=== PATIENT | male | born 1940 | race African-American/Black ===

== ENCOUNTER 2018-05-25 20:37 | Emergency (ER) | payer MEDICARE, BC ==
[2018-05-25] MEDS ORDERED: Adacel (T-DAP) 0.5 ML SYRINGE ONE (21:31)
--- NOTE | 2018-05-25 21:41 | RAD ---
FXR Hand Lt 3 View STANDARD: 05/25/2018 9:19 PM CLINICAL INDICATION: Injury, with nail gun COMPARISON: None. FINDINGS: Fracture:Scattered chronic appearing osseous deformities are present without a discrete, acute fractu re Arthropathy:Moderate arthropathy. Incidental findings:No radiopaque foreign body. There is vascular calcification. IMPRESSION: 1. No acute osseous abnormality. 2. No radiopaque foreign body.
== END 2018-05-25 21:57 | disposition home or self-care (01) ==
LOC: ERS 20:37
DX: S61.432A Puncture wound without foreign body of left hand, initial encounter (principal); I10 Essential (primary) hypertension; W29.4XXA Contact with nail gun, initial encounter
CPT/HCPCS: 90471; 90715

== ENCOUNTER 2018-11-14 13:15 | Outpatient (CLI) | payer MEDICARE, BC ==
--- NOTE | 2018-11-14 14:33 | ULT ---
SOFT TISSUE ULTRASOUND OF THE ANTERIOR LEFT WRIST: INDICATION: History of palpable abnormality, concern for possible lipoma or neuroma. TECHNIQUE: Grayscale and color Doppler images were obtained of the palpable region of interest along the volar a spect of the left wrist. FINDINGS: Within the palpable region of interest, there is a 2.1 x 0.4 x 1.2 cm mixed echogenicity, but predomi nantly hypoechoic collection, seen superficial to the flexor tendons of the volar wrist near the level of the radiocarpal joint. There is no internal vascular signal associated with this lesion. The lesion appears slightly more hypoechoic than expected for a lipoma. This does not definitely appear to arise from the median nerve. IMPRESSION: Hypoechoic soft tissue lesion seen along the volar aspect of the left wrist, superficial and adjacent to the flexor tendons near the region of the carpal tunnel. This may reflect an area of bursitis within the carpal tunnel. Contrast enhanced CT evaluation of the left wrist may be helpful for improv ed characterization. Transcribed Date/Time: 11/14/2018 3:30 PM
== END 2018-11-14 13:16 | disposition home or self-care (01) ==
LOC: ULT 13:15
PROVIDERS: ATTEND Orthopaedic Surgery Hand Surgery
DX: D17.22 Benign lipomatous neoplasm of skin and subcutaneous tissue of left arm (principal); D36.10 Benign neoplasm of peripheral nerves and autonomic nervous system, unspecified; M79.9 Soft tissue disorder, unspecified
CPT/HCPCS: 76999

== ENCOUNTER 2018-11-26 12:10 | Outpatient (CLI) | payer MEDICARE, BC ==
[2018-11-26 15:45] LABS: #Eosinphils 0.4 thou/uL (0.0-0.7); #Lymphocytes 2.3 thou/uL (1.20-3.40); #Monocytes 0.5 thou/uL (0.11-0.59); %Basophils 0.2 % (0.0-1.0); %Eosinophils 6.8 % (0.0-10.0); %Lymphocytes 44.7 % (21.0-51.0); %Monocytes 10.1 % (0.0-10.0); %Neutrophils 38.2 % (42.0-75.0); Hemoglobin 12.2 g/dL (14.0-18.0); Mean Corpuscular HGB CONC 31.4 g/dL (32.0-36.0); Mean Corpuscular Hemoglobin 26.7 pg (27.0-31.0); Mean Corpuscular Volume 85.2 fL (78.0-98.0); Mean Platelet Volume 7.4 fL (7.4-10.4); Platelet Count 257 thou/uL (130-400); RBC Distribution Width 15.3 % (11.5-14.5); Red Blood Cell (RBC) Count 4.58 mill/uL (4.70-6.10); White Blood Cell (WBC) Count 5.2 thou/uL (4.8-10.8)
[2018-11-26 15:50] LABS: Bacteria/HPF None Seen HPF (None Seen); Bilirubin Negative (Negative); Blood, Urine Negative (Negative); Clarity Clear (Clear); Glucose, Urine (Dipstick) Normal (Negative); Leukocyte Negative Leu/uL (Negative); Nitrite Negative (Negative); Protein, Urine (Dipstick) Negative (Neg-Trace); RBC/HPF 0-3 HPF (0-3); Squamous Epithelial None Seen HPF (0-3); Urobilinogen Normal mg/dL (Less than 2); WBC/HPF 0-3 HPF (0-3)
[2018-11-26 16:05] LABS: Anion Gap 10 mmol/L (10-20); BUN (Urea Nitrogen) 11 mg/dL (8.4-25.7); Calc. Creatinine Clearance 0 mL/min (70-130); Calcium 8.7 mg/dL (7.8-10.44); Carbon Dioxide 27 mmol/L (23-31); Chloride 103 mmol/L (98-107); Estimated GFR-MDRD Greater than 90; Glucose 96 mg/dL (83-110); Potassium 3.6 mmol/L (3.5-5.1); Sodium 136 mmol/L (136-145)
== END 2018-11-26 12:11 | disposition home or self-care (01) ==
LOC: LABBT 12:10
PROVIDERS: ATTEND Orthopaedic Surgery Hand Surgery
DX: Z01.818 Encounter for other preprocedural examination (principal); G56.02 Carpal tunnel syndrome, left upper limb; D17.9 Benign lipomatous neoplasm, unspecified
CPT/HCPCS: 80048; 81001; 85025; 93005; 93010

== ENCOUNTER 2018-11-27 10:13 | Day surgery (SDC) | payer MEDICARE, BC ==
[2018-11-26 15:28] VITALS: BMI 25.7
[2018-11-27] MEDS ORDERED: Fentanyl 100 MCG/2 ML VIAL ONE ×2 (12:02→12:51)
[2018-11-27] MEDS ORDERED: Bupivacaine PF 0.5% 30 ML VIAL ONE (12:05)
[2018-11-27] MEDS ORDERED: Betamet Acet/Betamet Na Ph 30 MG/5 ML VIAL ONE (12:05)
[2018-11-27] MEDS ORDERED: Sodium Chloride 0.9% 10 ML ONE (12:05)
[2018-11-27] MEDS ORDERED: Bacitracin Zinc Ointment 30 gm TUBE ONE (12:05)
[2018-11-27] MEDS ORDERED: PROPOFOL 200 MG/20 ML VIAL ONE (12:17)
[2018-11-27] MEDS ORDERED: Ketorolac Tromethamine 30 MG/ML VIAL ONE (15:30)
--- NOTE | 2018-11-28 10:38 | OP ---
DATE OF PROCEDURE: 11/27/2018 PREOPERATIVE DIAGNOSIS: 1. Carpal tunnel syndrome. 2. 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 PROCEDURE PERFORMED: 1. Resection of neuroma under magnification to include microscope. 2. Repair of median nerve fascicle, fascicular technique x2 with one coming direct and one needing a graft. 3. Carpal tunnel release/median nerve neuroplasty. 4. Neural tube application, 1.5 cm x 3 mm cut to appropriate size. SPECIMENS TO LAB: A 4.5 x 2.0 cm neuroma continuity which came back from a verbal call from frozen section pathology as consistent with neuroma, nonmalignant. TOURNIQUET TIME: 90 minutes. ESTIMATED BLOOD LOSS: 10 mL. INDICATIONS FOR PROCEDURE: The patient has had numbness and tingling for over 3 years and reported a 2-year history of a mass that had grown to the present size, remains over the last 1 year. He had positive EMGs and exam for carpal tunnel and this mass was felt to be either a giant cyst, synovial cell or a synovioma or neuroma. DESCRIPTION OF PROCEDURE: After successful anesthesia, incision outlined and beginning in line at the ring finger as far distal as Painting's cardinal line, coursing across the wrist joint at an angle, then reached 2 cm proximal to the volar wrist flexion crease mass. We carried the incision to the skin and subcutaneous tissue with a sharp knife, dissected the tissue planes, carried to the transverse carpal ligament. It was here we identified the median nerve proximal to transverse carpal ligament, assured it was released appropriately. The patient then had the lesion , the most ulnar fascicle blended completely with the mass and could not be visualized either with micro magnification, so when the mass was incised we then noticed that the ulnar fascicle of this nerve root had a gap of almost 1 cm. Similarly, there was a laceration with only one 2 mm gap and the next one was radial fascicle. The mass was sent to the lab, microscope was then used to do an interfascicular repair, using a 9-0 nylon and then a sheath was applied over the second most ulnar sheath fasicle repair with an 8-0 nurolon. Finally, the fascicle that was almost 8 to 9 mm too short to reach, was further and then we placed it inside a 1.5 mm cut to above 1.2 cm and we secured both ends in the neural tube for grafting and we will follow the patient's foot pain if necessary. Job ID: [id number]
== END 2018-11-27 16:55 | disposition home or self-care (01) ==
LOC: SDC 10:13
PROVIDERS: ATTEND Orthopaedic Surgery Hand Surgery
PROC: 01N50ZZ Release Median Nerve, Open Approach (ICD-10-PCS; principal; 2018-11-27)
PROC: 01B50ZZ Excision of Median Nerve, Open Approach (ICD-10-PCS; 2018-11-27)
PROC: 01U50JZ Supplement Median Nerve with Synthetic Substitute, Open Approach (ICD-10-PCS; 2018-11-27)
DX: D36.12 Benign neoplasm of peripheral nerves and autonomic nervous system, upper limb, including shoulder (principal); G56.02 Carpal tunnel syndrome, left upper limb; M47.816 Spondylosis without myelopathy or radiculopathy, lumbar region; M65.332 Trigger finger, left middle finger; M19.90 Unspecified osteoarthritis, unspecified site; I10 Essential (primary) hypertension; I25.10 Atherosclerotic heart disease of native coronary artery without angina pectoris; E78.00 Pure hypercholesterolemia, unspecified; Z79.01 Long term (current) use of anticoagulants; Z79.82 Long term (current) use of aspirin; Z79.899 Other long term (current) drug therapy; Z95.1 Presence of aortocoronary bypass graft; Z95.0 Presence of cardiac pacemaker; Z98.890 Other specified postprocedural states
CPT/HCPCS: 88304; 88331; C9352; J0690; J0702; J1885; J3010; J3490; S0020

== ENCOUNTER 2019-07-12 06:39 | Day surgery (SDC) | payer MEDICARE, BC ==
[2019-07-12] MEDS ORDERED: Midazolam HCl 2 mg/2 ml Vial ONE (07:21)
[2019-07-12] MEDS ORDERED: Fentanyl 100 MCG/2 ML VIAL ONE (07:21)
[2019-07-12] MEDS ORDERED: Iopamidol 370 76% 100 ML VIAL ONE (09:27)
[2019-07-12] MEDS ORDERED: Iopamidol 370 76% 50 ML VIAL FS ONE (09:27)
== END 2019-07-12 13:50 | disposition home or self-care (01) ==
LOC: CCL 06:39
PROVIDERS: ATTEND Internal Medicine Cardiovascular Disease
PROC: 4A023N7 Measurement of Cardiac Sampling and Pressure, Left Heart, Percutaneous Approach (ICD-10-PCS; principal; 2019-07-12)
PROC: B2111ZZ Fluoroscopy of Multiple Coronary Arteries using Low Osmolar Contrast (ICD-10-PCS; 2019-07-12)
PROC: B2131ZZ Fluoroscopy of Multiple Coronary Artery Bypass Grafts using Low Osmolar Contrast (ICD-10-PCS; 2019-07-12)
PROC: B2181ZZ Fluoroscopy of Left Internal Mammary Bypass Graft using Low Osmolar Contrast (ICD-10-PCS; 2019-07-12)
DX: I25.10 Atherosclerotic heart disease of native coronary artery without angina pectoris (principal); I25.82 Chronic total occlusion of coronary artery; I48.0 Paroxysmal atrial fibrillation; I25.5 Ischemic cardiomyopathy; I11.0 Hypertensive heart disease with heart failure; I50.9 Heart failure, unspecified; Z87.891 Personal history of nicotine dependence; Z79.01 Long term (current) use of anticoagulants; Z79.82 Long term (current) use of aspirin; Z79.899 Other long term (current) drug therapy; Z95.1 Presence of aortocoronary bypass graft
CPT/HCPCS: 76942; 93459; 93567; 99152; C1769; J1644; J2250; J3010; Q9967

== ENCOUNTER 2020-01-29 16:54 | Observation (INO) | payer MEDICARE, BC ==
--- NOTE | 2020-01-29 19:44 | RAD ---
CHEST ONE VIEW: 01/29/20 HISTORY: Chest pain. COMPARISON: None. FINDINGS: Lungs are clear although mildly hyperinflated. Dual lead AICD/pacer electrode tips project over the r ight atrium and right ventricle. No acute osseous abnormality. No air space consolidation, pneumothor ax or effusion. IMPRESSION: No acute intrathoracic abnormality. POS: [facility]
[2020-01-29 20:58] LABS: ALT (SGPT) 14 U/L (8-55); AST (SGOT) 19 U/L (5-34); Albumin 3.6 g/dL (3.4-4.8); Alkaline Phosphatase 111 U/L (40-110); Anion Gap 11 mmol/L (10-20); BUN (Urea Nitrogen) 16 mg/dL (8.4-25.7); Bilirubin, Total 0.4 mg/dL (0.2-1.2); Calc. Creatinine Clearance 0 mL/min (70-130); Calcium 8.6 mg/dL (7.8-10.44); Carbon Dioxide 28 mmol/L (23-31); Chloride 105 mmol/L (98-107); Globulin 3.7 g/dL (2.4-3.5); Glucose 102 mg/dL (83-110); Potassium 3.7 mmol/L (3.5-5.1); Protein, Total 7.3 g/dL (5.8-8.1); Sodium 140 mmol/L (136-145)
[2020-01-29 21:03] LABS: Troponin I 0.055 ng/mL (< 0.028)
[2020-01-29] MEDS ORDERED: Acetaminophen 325 MG TAB PO PRN (22:38)
[2020-01-29 23:01] LABS: #Eosinphils 0.2 thou/uL (0.0-0.7); #Lymphocytes 1.3 thou/uL (1.20-3.40); #Monocytes 0.6 thou/uL (0.11-0.59); #Neutrophils 3.8 thou/uL (1.40-6.50); %Basophils 0.5 % (0.0-1.0); %Lymphocytes 22.6 % (21.0-51.0); %Monocytes 9.2 % (0.0-10.0); %Neutrophils 63.6 % (42.0-75.0); Mean Corpuscular HGB CONC 32.3 g/dL (32.0-36.0); Mean Corpuscular Hemoglobin 28.7 pg (27.0-31.0); Mean Platelet Volume 6.7 fL (7.4-10.4); Platelet Count 257 thou/uL (130-400); RBC Distribution Width 13.1 % (11.5-14.5); Red Blood Cell (RBC) Count 3.84 mill/uL (4.70-6.10); White Blood Cell (WBC) Count 5.9 thou/uL (4.8-10.8)
--- NOTE | 2020-01-29 23:01 | PDOC.BPN ---
- Brief Progress Note [id number] HP dictated
[2020-01-30 00:54] LABS: Troponin I 0.088 ng/mL (< 0.028)
[2020-01-30 01:08] VITALS: BMI 23.6
[2020-01-30 02:07] LABS: Troponin I 0.082 ng/mL (< 0.028)
--- NOTE | 2020-01-30 02:25 | HP ---
CHIEF COMPLAINT: Defibrillator fired x2. HISTORY OF PRESENT ILLNESS: Mr. Morrison is a 79-year-old male with a past medical history of atrial fibrillation, hypertension, cardiac defibrillator, among others, presented to the emergency room after he was working in his yard on his tractor when his defibrillator fired two times. He had no chest pain, shortness of breath, weakness, or loss of consciousness. He states that his defibrillator has fired in the past, more frequent in the last week. He denies any recent illness, fever, or chills. Workup in the emergency room, the interrogation of the device showed runs of ventricular tachycardia, atrial tachycardia, and atrial fibrillation. The ED physician discussed the case with the cardiac numerologist, who advised to admit the patient and he will consult in a.m. Initial lab work; the patient had troponin 0.05, creatinine 1.3. Otherwise, electrolytes are unremarkable. Chest x-ray, no acute finding. The patient is being admitted to hospital for further management. PAST MEDICAL HISTORY: 1. Atrial fibrillation. 2. Hypertension. PAST SURGICAL HISTORY: 1. Bilateral shoulder surgery. 2. Triple bypass. SOCIAL HISTORY: The patient drinks every day less than five drinks a day. Denies drug use. No smoking history. HOME MEDICATIONS: See home medication reconciliation form for updated medications. ALLERGIES: NO KNOWN ALLERGIES. REVIEW OF SYSTEMS: Review of 14 systems negative except what is mentioned in the history of present illness. PHYSICAL EXAMINATION: GENERAL: The patient is awake, alert, does not appear to be in acute distress. VITAL SIGNS: Blood pressure 124/64, pulse is 86, respiratory rate is 20, temperature 98.9, oxygen saturations 97% on room air. HEENT: Normocephalic, atraumatic. NECK: Supple. No JVD. CHEST: Fair bilateral air entry. HEART: S1, S2. Regular. ABDOMEN: Soft, nontender. Bowel sounds present. NEUROLOGIC: Awake, alert, and oriented x3. PSYCH: Normal mood. EXTREMITIES: No clubbing, no cyanosis. GENITOURINARY: No suprapubic tenderness. No flank tenderness. LABORATORY DATA: As mentioned above in the history of present illness. Chest x-ray, no acute finding. ASSESSMENT: 1. AICD multiple firing. 2. Indeterminate troponin. 3. History of atrial fibrillation. 4. Cardiac arrhythmias. 5. Coronary artery disease. 6. Hypertension. PLAN: 1. Admit. 2. Tele monitoring. 3. Serial troponins. 4. Cardiac numerologist consult for evaluation and further recommendations. 5. Reconcile home medications. 6. DVT prophylaxis as appropriate. 7. Expected length of stay, at least 1 midnight if patient is stable and cleared by Cardiology. Job ID: [id number]
[2020-01-30 06:36] LABS: SARS-CoV-2 MS2 Positive; SARS-CoV-2 N Gene Negative; SARS-CoV-2 S Gene Negative; SARS-CoV-2 by NAA Not Detected (NotDetected); SARS-CoV-2 orf1ab Negative
[2020-01-30] MEDS ORDERED: Rivaroxaban 10 MG TAB PO SCH (09:00)
[2020-01-30] MEDS ORDERED: Aspirin 81 mg Enteric Coated Tablet PO SCH (09:00)
[2020-01-30] MEDS ORDERED: Furosemide 40 MG TAB PO SCH (09:00)
[2020-01-30] MEDS ORDERED: Carvedilol 6.25 MG TAB PO SCH (09:00)
[2020-01-30] MEDS ORDERED: Amiodarone 200 MG TAB PO SCH ×4 (09:34→15:00)
--- NOTE | 2020-01-30 10:52 | PDOC.DS.DS ---
Provider - Provider Date of Admission: 01/29/20 22:58 Admitting Provider: Jax Gomez MD Consultations: Cardiology Primary Care Physician: NO PCP PROVIDER Course - Hospital Course Hospital Course: HISTORY OF PRESENT ILLNESS AND BRIEF HOSPITAL COURSE: Patient is a pleasant 79 years ago gentleman who has significant past medical histories of congestive heart failure, ischemic cardiomyopathy with severe reduced EF, status post dual-chamber ICD placed in 2017. He presented to the ED with multiple shocks from his AICD device. It was unclear that liters or not olvin baird has been taking his Coreg as he is supposed to. At any rate, patient was subsequently admitted. His electrolytes have been corrected. EP was consulted, his AICD was interrogated, and appeared to be atrial fib with RVR. Dr. Knowles recommend start him on amiodarone with taper. Patient okay to discharge from his standpoint. Patient is given a prescription for Coreg as well as amiodarone. Patient to follow-up with him in 4 weeks. He is otherwise asymptomatic. PROCEDURE PERFORMED: NONE DISCHARGE CONDITION: STABLE DISPOSITION: HOME PHYSICAL EXAM: General Appearance: Alert, oriented, resting comfortably, no apparent distress, well developed/nourished. HEENT: Normocephalic/atraumatic, moist mucous membrane, normal ENT inspection, normal tones. PERRLA, no scleral icterus, normal conjunctiva Neck: Supple, normal inspection, no JVD Respiratory: Lungs are clear bilaterally, normal breath sounds, no accessory muscle use Cardiovascular: Regular rate, regular rhythm, no murmur, no rubs Abdomen: Soft, nontender, nondistended, normal bowel sounds, no organomegaly, no guarding no rebound Back: Normal inspection, no CVA tenderness Extremities: No clubbing, no cyanosis, no edema Psych/Mental Status: Normal affect, speech, non-pressured, AAO x 3 Neurologic: CN II-XII are intact. Skin: Warm/Dry, Normal Color, no rashes DISCHARGE TIME SPENT: >30 MINUTES Resuscitation Status: 01/29/20 22:38 Resuscitation Status Routine Resuscitation Status: FULL: Full Resuscitation - Labs Lab Results: 01/29/20 17:40 01/29/20 17:40 Abnormal Lab Results - Last 48 hrs 01/29/20 00:14: Troponin I 0.088 H 01/29/20 17:40: RBC 3.84 L, Hgb 11.0 L, Hct 34.2 L, MPV 6.7 L, Monocytes # 0.6 H 01/29/20 17:40: Creatinine 1.34 H, Alkaline Phosphatase 111 H, Globulin 3.7 H, Albumin/Globulin Ratio 1.0 L 01/29/20 17:40: Troponin I 0.055 H 01/30/20 01:36: Troponin I 0.082 H - Physical Exam Vitals: Vital Signs (12 hours) Temp Pulse Resp BP BP BP Pulse Ox 01/30/20 08:19 132/61 01/30/20 08:15 132/61 01/30/20 08:00 98.4 F 71 16 131/61 92 L 01/30/20 04:00 97.8 F 62 20 129/62 92 L 01/30/20 00:25 98.5 F 82 20 141/66 H 95 Weight Weight 169 lb 6.4 oz Physical Exam: The patient was seen and examined on the day of discharge. Problem - Problem (1) Inappropriate shocks from ICD (implantable cardioverter-defibrillator) Code(s): T82.198A - [facility] COMPL OF OTHER CARDIAC ELECTRONIC DEVICE, INIT ENCNTR Status: Acute (2) Atrial fibrillation with RVR Code(s): I48.91 - UNSPECIFIED ATRIAL FIBRILLATION Status: Acute (3) CHF (congestive heart failure) Code(s): I50.9 - HEART FAILURE, UNSPECIFIED Status: Acute Plan - Discharge Medications Prescriptions: Amiodarone [Cordarone] 200 mg PO DAILY #90 tab Carvedilol [Coreg] 6.25 mg PO BID #60 tablet Home Medications: Medication Instructions Recorded Confirmed Type Simvastatin [Zocor] 40 mg PO HS 07/28/12 01/30/20 History Potassium Chloride 8 meq PO DAILY 03/08/16 01/30/20 History Rivaroxaban [Xarelto] 20 mg PO HS 03/08/16 01/30/20 History Nitroglycerin [Nitrostat] 0.4 mg SL Q5MIN PRN #0 tab 03/11/16 01/30/20 Rx Furosemide 40 mg PO BID 11/26/18 01/30/20 History Aspirin [Ecotrin Low Strength] 81 mg PO DAILY 07/12/19 01/30/20 History Isosorbide Mononitrate [Isosorbide 60 mg PO DAILY 07/12/19 01/30/20 History Mononitrate ER] Amiodarone [Cordarone] 200 mg PO DAILY #90 tab 01/30/20 Rx Carvedilol [Coreg] 6.25 mg PO BID #60 tablet 01/30/20 Rx Lisinopril [Zestril] 2.5 mg PO DAILY 01/30/20 01/30/20 History Allergies: No Known Drug Allergies Allergy (Unknown, Verified 01/30/20 00:58) - Discharge Instructions Discharge Instructions:: Follow up with Dr. Hauser in 4 weeks Activity:: Activity as Tolerated Nourishment:: Heart Healthy Diet - Follow up Plan Referrals: PROVIDER,NO PCP [Primary Care Provider] - 7 Days (LIST OF [facility] PROVIDERS GIVEN. CALL AND SCHEDULE AN APPT TO ESTABLISH WITH A PRIMARY CARE PHYSICIAN. ) Mike Hauser MD [[employer]] - 3-4 Weeks (CALL AND SCHEDULE FOLLOW UP APPT TO SEE DR HAUSER IN 4 WEEKS.) Disposition: HOME Quality - Care Measures CORE MEASURES:: N/A
--- NOTE | 2020-01-30 11:14 | CON ---
DATE OF CONSULTATION: 01/30/2020 TAX CLERK: Dr. 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 HISTORY OF PRESENT ILLNESS: I am seeing Mr. Morrison at our [facility] Telemetry Floor as an Electrophysiology virtualization consultant. His problems are; 1. Acute ICD shocks. a. The interrogation is suggestive of possible atrial fibrillation with rapid ventricular rates, prompting ICD discharges. b. Possible noncompliance with Coreg. 2. Paroxysmal atrial fibrillation with relatively intermediate low burden with maximum duration 2 to 3 hours, but more frequently or recently. a. On Xarelto for anticoagulation. 3. Chronic CHF with ischemic cardiomyopathy. a. 20% to 30% range. 4. Status post dual-chamber ICD placement with Medtronic Evera device on 01/27/2017. a. RV lead fracture prompting RV lead revision and new Medtronic Evera device placement on January 08, 2020. 5. History of ventricular tachycardia only nonsustained more recently. 6. History of hypertension and hyperlipidemia. ALLERGIES: NONE NOTED. MEDICATIONS: At home included; 1. Zocor. 2. Potassium chloride. 3. Xarelto. 4. Nitrostat. 5. Furosemide. 6. Ecotrin. 7. Isosorbide mononitrate. 8. . SUBJECTIVE: Mr. Morrison is here due to repeated ICD shocks. According to him, he was riding his tractor and then, the ICD suddenly discharged repeatedly. He did not pass out. Denies preceding angina. No seizure-like activity. No stroke-like symptoms. No neurological deficits are felt. Since the ICD shocks were disturbing for him, he is doing fair. He has no further issues. He denies PND, orthopnea, or lower extremity edema. He has fluid overload. No complications from device issues. No device site swelling. The incision is healing well. REVIEW OF SYSTEMS: Rest of 12-point review of system otherwise unremarkable. PAST MEDICAL HISTORY: As above. 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 Drinks regularly without excess and denies EtOH or drug abuse. FAMILY HISTORY: Not contributory. OBJECTIVE: VITAL SIGNS: Blood pressure 131/61, heart rate 71, respiratory rate 16, and temperature 98.4 degrees Fahrenheit. GENERAL: Alert and oriented man, in no apparent distress. NECK: Supple. Jugular veins not distended. CHEST: Coarse without crackles. HEART: Sounds are regular to rate and rhythm. No murmur or gallop. ABDOMEN: Benign. Bowel sounds positive. EXTREMITIES: Lower extremities without edema, clubbing, or cyanosis. Pulses are adequate. NEUROLOGIC: Nonfocal. MUSCULOSKELETAL: Without joint swelling or deformity. SKIN: Without rash. The left subclavian ICD site had adequately healed without hematoma. DATABASE: EKG is reviewed, revealing initially atrial fibrillation with rapid rate at 178 beats per minute. An EKG does reveal sinus rhythm, presently in atrial fibrillation. Subsequent EKGs in the hospital reveal sinus rhythm, sinus tachycardia with occasional PVCs, and left atrial enlargement noted. The ICD was interrogated revealing a Medtronic Evera DR dual-chamber ICD with battery longevity 7.3 years. Lead parameters are adequate, sensing 2.6 mV and 0.5 mV in the right atrium and right ventricle respectively. Impedance is in adequate range. Thresholds as well. The current programming is DDD mode. Past VT episode noted to be treated with two ICD shocks. Review of the EGM of these episodes reveals atrial fibrillation with variable AV conduction with QRS morphology, it is similar to baseline suggestive of possibly a rapidly conducted atrial fibrillation, max heart rate in the 200 beats per minute range. Additional episodes are seen mostly atrial fibrillation with rapid rate, although they are not any longer sustained around the same time. Seems to be more frequent since the end of December. LABORATORY DATA: White count is 5.9, hemoglobin is 11, and platelet count is 257. Sodium 140, potassium 3.7, BUN is 16, and creatinine 1.34. Troponin I 0.08, 0.05, and 0.08 consecutively. AST and ALT are normal range. His COVID test was negative. The chest x-ray showed no acute intrathoracic abnormality. ASSESSMENT AND PLAN: Mr. Morrison is a very pleasant 79-year-old gentleman with history of congestive heart failure and ischemic cardiomyopathy, history of severe reduced LVEF left ventricular ejection fraction in the past. He also has a dual-chamber implantable cardioverter-defibrillator in place, which recently required right ventricular lead revision in [place] at end of December. Since then, he has healed up well and he admittedly might have been suboptimally compliant with his usual heart failure medication including his Coreg. His implantable cardioverter-defibrillator shock seems to be consistent with atrial fibrillation with rapid ventricular rate and episodes continued more frequent recently. Also, previously has had atrial fibrillation episodes with better rate control, not requiring implantable cardioverter-defibrillator intervention. At this time though with lower Coreg intake, his heart rates likely got more easily out of hand. In the way atrial fibrillation not seems to be an issue for him. He will resume his Coreg dose, but also may benefit from suppression of the atrial fibrillation episodes. His borderline renal function and I think the progression is baseline and I would not use Zocor or dofetilide, but amiodarone would be still reasonable to start, although I did discuss the potential long-term risk with amiodarone use. We will start loading, but I also gave him the option of considering an ablation procedure. He is interested in this and would like to discuss this further at a near date. CHADS-VASc score of 5 on Xarelto, continue. History of congestive heart failure, cardiomyopathy. Routine follow up with Dr. Rivas for assessment of his LV function, I am not suspecting acute ischemia or heart failure playing a major role at this time. Job ID: [id number]
[2020-01-30 11:40] VITALS: BP 118/62; TEMP 98
== END 2020-01-30 14:25 | disposition home or self-care (01) ==
LOC: ERS 16:54 → 2SE 22:58
PROVIDERS: ADMIT Internal Medicine; ATTEND Family Medicine
DX: T82.198A Other mechanical complication of other cardiac electronic device, initial encounter (principal); I48.0 Paroxysmal atrial fibrillation; I25.10 Atherosclerotic heart disease of native coronary artery without angina pectoris; I11.0 Hypertensive heart disease with heart failure; I50.9 Heart failure, unspecified; I25.5 Ischemic cardiomyopathy; Z79.01 Long term (current) use of anticoagulants; Z79.82 Long term (current) use of aspirin; Z79.899 Other long term (current) drug therapy; Z95.1 Presence of aortocoronary bypass graft; Z95.810 Presence of automatic (implantable) cardiac defibrillator; Z20.828 Contact with and (suspected) exposure to other viral communicable diseases
CPT/HCPCS: 71045; 80053; 83735; 84484 ×3; 85025; 93005; 94760; 99285; G0378 ×2; U0003; 36415; 87635

== ENCOUNTER 2021-08-12 10:06 | Inpatient (IN) | payer MEDICARE, BC ==
[2021-08-12] MEDS ORDERED: Iopamidol-370 76% 500 ML 1 ML ONE (11:54)
[2021-08-12 12:31] LABS: #Eosinphils 0.6 thou/uL (0.0-0.7); #Lymphocytes 1.7 thou/uL (1.20-3.40); #Monocytes 0.7 thou/uL (0.11-0.59); #Neutrophils 3.5 thou/uL (1.40-6.50); %Basophils 0.8 % (0.0-1.0); %Eosinophils 8.9 % (0.0-10.0); %Lymphocytes 26.6 % (21.0-51.0); %Neutrophils 53.7 % (42.0-75.0); Hemoglobin 11.7 g/dL (14.0-18.0); Mean Corpuscular HGB CONC 30.6 g/dL (32.0-36.0); Mean Corpuscular Hemoglobin 26.7 pg (27.0-31.0); Mean Corpuscular Volume 87.2 fL (78.0-98.0); Mean Platelet Volume 8.1 fL (7.4-10.4); Platelet Count 252 thou/uL (130-400); RBC Distribution Width 15.9 % (11.5-14.5); Red Blood Cell (RBC) Count 4.39 mill/uL (4.70-6.10); White Blood Cell (WBC) Count 6.5 thou/uL (4.8-10.8)
[2021-08-12] MEDS ORDERED: cefTRIAXone\\ROCEPHIN 2 GM VIAL ONE (12:50)
[2021-08-12] MEDS ORDERED: Azithromycin 500 MG VIAL ONE (12:50)
[2021-08-12 12:58] LABS: Anion Gap 13 mmol/L (10-20); BUN (Urea Nitrogen) 13 mg/dL (8.4-25.7); Calc. Creatinine Clearance 0 mL/min (70-130); Carbon Dioxide 28 mmol/L (23-31); Chloride 106 mmol/L (98-107); Potassium 4.2 mmol/L (3.5-5.1); Sodium 143 mmol/L (136-145)
[2021-08-12 12:59] LABS: ALT (SGPT) 24 U/L (8-55); AST (SGOT) 31 U/L (5-34); Albumin 3.8 g/dL (3.4-4.8); Alkaline Phosphatase 146 U/L (40-110); Bilirubin, Total 0.8 mg/dL (0.2-1.2); Calcium 8.9 mg/dL (7.8-10.44); Globulin 4.1 g/dL (2.4-3.5); Glucose 88 mg/dL (83-110); Protein, Total 7.9 g/dL (5.8-8.1)
[2021-08-12] MEDS ORDERED: Bisacodyl 5 MG TAB PO PRN (13:25)
[2021-08-12] MEDS ORDERED: Bisacodyl 10 MG SUPP PR PRN (13:25)
[2021-08-12] MEDS ORDERED: Senokot S 8.6-50 MG TAB PO PRN (13:25)
[2021-08-12] MEDS ORDERED: Ondansetron ODT 4 MG TAB PO PRN (13:25)
[2021-08-12] MEDS ORDERED: Acetaminophen 325 MG TAB PO PRN (13:25)
[2021-08-12] MEDS ORDERED: Ondansetron PF 4 MG/2 ML Vial IVP PRN (13:25)
[2021-08-12 14:24] LABS: Bilirubin Negative (Negative); Blood, Urine Negative (Negative); Clarity Clear (Clear); Glucose, Urine (Dipstick) Normal (Negative); Ketone, Urine Negative (Negative); Leukocyte Negative Leu/uL (Negative); Nitrite Negative (Negative); Protein, Urine (Dipstick) Negative (Neg-Trace); Specific Gravity, Urine 1.008 (1.002-1.036); Urobilinogen Normal mg/dL (Less than 2)
[2021-08-12] MEDS ORDERED: Furosemide 40 MG/4 ML VIAL SLOW IVP SCH (14:45)
[2021-08-12 15:14] VITALS: BMI 23.2
[2021-08-12 15:33] LABS: Hemoglobin A1c 5.7 % (4.0-6.0)
[2021-08-12 15:34] LABS: Troponin I 0.041 ng/mL (< 0.028)
[2021-08-12] MEDS ORDERED: Metoprolol Tartrate 5 MG/5 ML VIAL IVP PRN (19:58)
[2021-08-12 20:15] LABS: Legionella Urinary Ag Negative (Negative); Strep pneumo Urine Ag NEGATIVE (NEGATIVE)
[2021-08-12 20:42] LABS: Troponin I 0.034 ng/mL (< 0.028)
[2021-08-13] MEDS ORDERED: Metoprolol Tartrate 5 MG/5 ML VIAL IVP SCH (05:00)
[2021-08-13 05:05] LABS: #Basophils 0.1 thou/uL (0.0-0.2); #Eosinphils 0.3 thou/uL (0.0-0.7); #Lymphocytes 1.8 thou/uL (1.20-3.40); #Monocytes 0.6 thou/uL (0.11-0.59); #Neutrophils 3.1 thou/uL (1.40-6.50); %Basophils 0.9 % (0.0-1.0); %Eosinophils 5.2 % (0.0-10.0); %Lymphocytes 30.8 % (21.0-51.0); %Monocytes 9.9 % (0.0-10.0); %Neutrophils 53.3 % (42.0-75.0); Hemoglobin 11.2 g/dL (14.0-18.0); Mean Corpuscular HGB CONC 30.6 g/dL (32.0-36.0); Mean Corpuscular Hemoglobin 26.6 pg (27.0-31.0); Mean Corpuscular Volume 86.9 fL (78.0-98.0); Mean Platelet Volume 7.9 fL (7.4-10.4); Platelet Count 234 thou/uL (130-400); RBC Distribution Width 15.8 % (11.5-14.5); Red Blood Cell (RBC) Count 4.23 mill/uL (4.70-6.10); White Blood Cell (WBC) Count 5.8 thou/uL (4.8-10.8)
[2021-08-13 05:28] LABS: Anion Gap 14 mmol/L (10-20); BUN (Urea Nitrogen) 15 mg/dL (8.4-25.7); CRP (Inflammatory) 0.64 mg/dL (= or < 0.5); Calc. Creatinine Clearance 58 mL/min (70-130); Calcium 8.9 mg/dL (7.8-10.44); Carbon Dioxide 25 mmol/L (23-31); Cardiac Risk 2.8 (Less than 4.5); Chloride 104 mmol/L (98-107); Cholesterol 106 mg/dl (< 200 Desired); Glucose 98 mg/dL (83-110); HDL Cholesterol 38 mg/dL (>60 Neg Risk); LDL Cholesterol, Calculated 58 mg/dL; Potassium 3.5 mmol/L (3.5-5.1); Sodium 139 mmol/L (136-145); Triglycerides 49 mg/dL (Less than 150)
[2021-08-13] MEDS: Rivaroxaban 10 MG TAB PO SCH (08:48)
[2021-08-13] MEDS: Aspirin 81 mg Enteric Coated Tablet PO SCH (08:48)
[2021-08-13] MEDS: Carvedilol 6.25 MG TAB PO SCH (08:49)
[2021-08-13] MEDS: Lisinopril 2.5 MG TAB PO SCH (08:49)
[2021-08-13] MEDS: Amiodarone 200 MG TAB PO SCH (08:49)
[2021-08-13] MEDS: Atorvastatin Calcium 20 MG TAB PO SCH (08:49)
[2021-08-13] MEDS: Furosemide 40 MG TAB PO SCH (08:49)
[2021-08-13] MEDS: cefTRIAXone\\ROCEPHIN 2 GM in Sodium Chloride 0.9% 100 ML IVPB SCH (12:39)
[2021-08-13] MEDS: Azithromycin 500 MG in Sodium Chloride 0.9% 250 ML 250 ML IVPB SCH (14:15)
[2021-08-14 05:19] LABS: #Eosinphils 0.7 thou/uL (0.0-0.7); #Lymphocytes 1.4 thou/uL (1.20-3.40); #Monocytes 0.7 thou/uL (0.11-0.59); #Neutrophils 3.3 thou/uL (1.40-6.50); %Basophils 0.3 % (0.0-1.0); %Eosinophils 12.2 % (0.0-10.0); %Lymphocytes 22.1 % (21.0-51.0); %Monocytes 11.7 % (0.0-10.0); %Neutrophils 53.7 % (42.0-75.0); Hemoglobin 10.4 g/dL (14.0-18.0); Mean Corpuscular HGB CONC 30.9 g/dL (32.0-36.0); Mean Corpuscular Hemoglobin 26.9 pg (27.0-31.0); Mean Corpuscular Volume 86.8 fL (78.0-98.0); Mean Platelet Volume 7.9 fL (7.4-10.4); Platelet Count 232 thou/uL (130-400); RBC Distribution Width 15.9 % (11.5-14.5); Red Blood Cell (RBC) Count 3.87 mill/uL (4.70-6.10); White Blood Cell (WBC) Count 6.1 thou/uL (4.8-10.8)
[2021-08-14 05:44] LABS: Anion Gap 11 mmol/L (10-20); BUN (Urea Nitrogen) 18 mg/dL (8.4-25.7); Calc. Creatinine Clearance 55 mL/min (70-130); Calcium 8.6 mg/dL (7.8-10.44); Carbon Dioxide 28 mmol/L (23-31); Chloride 103 mmol/L (98-107); Glucose 99 mg/dL (83-110); Potassium 3.4 mmol/L (3.5-5.1); Sodium 139 mmol/L (136-145)
[2021-08-14 07:31] VITALS: BP 139/69; TEMP 98.1
[2021-08-14] MEDS: Atorvastatin Calcium 20 MG TAB PO SCH (09:05)
[2021-08-14] MEDS: Furosemide 40 MG TAB PO SCH (09:05)
[2021-08-14] MEDS: Aspirin 81 mg Enteric Coated Tablet PO SCH (09:05)
[2021-08-14] MEDS: Lisinopril 2.5 MG TAB PO SCH (09:05)
[2021-08-14] MEDS: Carvedilol 6.25 MG TAB PO SCH (09:06)
[2021-08-14] MEDS: Rivaroxaban 10 MG TAB PO SCH (09:06)
[2021-08-14] MEDS: Amiodarone 200 MG TAB PO SCH (09:07)
[2021-08-14] MEDS: cefTRIAXone\\ROCEPHIN 2 GM in Sodium Chloride 0.9% 100 ML IVPB SCH (13:01)
[2021-08-14] MEDS: Azithromycin 500 MG in Sodium Chloride 0.9% 250 ML 250 ML IVPB SCH (14:01)
== END 2021-08-14 16:05 | disposition home or self-care (01) | DRG 193 ==
LOC: ERS 10:06 → 2SW 14:29 → OBSVTOIN 08-13 15:55
PROVIDERS: ADMIT Internal Medicine; ATTEND Internal Medicine
DX: J18.9 Pneumonia, unspecified organism (principal); I50.23 Acute on chronic systolic (congestive) heart failure; J96.20 Acute and chronic respiratory failure, unspecified whether with hypoxia or hypercapnia; Z20.822 Contact with and (suspected) exposure to COVID-19; I48.91 Unspecified atrial fibrillation; I25.10 Atherosclerotic heart disease of native coronary artery without angina pectoris; I11.0 Hypertensive heart disease with heart failure; D64.9 Anemia, unspecified; R79.89 Other specified abnormal findings of blood chemistry; R77.8 Other specified abnormalities of plasma proteins; Z79.01 Long term (current) use of anticoagulants; Z95.810 Presence of automatic (implantable) cardiac defibrillator; Z95.1 Presence of aortocoronary bypass graft; Z79.899 Other long term (current) drug therapy; Z79.82 Long term (current) use of aspirin; Z98.890 Other specified postprocedural states
CPT/HCPCS: 36415; 71045; 71275; 80048; 80053; 80061; 81003; 82553; 83036; 83605; 83735; 83880; 84145; 84443; 84484; 85025; 85379; 86140; 87040; 87081; 87449; 87899; 93005; 93798; 94640; 96365; 96375; 96376; G0378; J0456; J0696; J1940; J3490; J7050; J7620; Q9967; U0003; U0005

== ENCOUNTER 2021-11-17 15:01 | Emergency (ER) | payer MEDICARE, BC ==
[2021-11-17 15:32] LABS: #Basophils 0.1 thou/uL (0.0-0.2); #Eosinphils 0.2 thou/uL (0.0-0.7); #Lymphocytes 1.9 thou/uL (1.20-3.40); #Monocytes 0.5 thou/uL (0.11-0.59); #Neutrophils 2.2 thou/uL (1.40-6.50); %Basophils 1.4 % (0.0-1.0); %Lymphocytes 37.7 % (21.0-51.0); %Neutrophils 44.9 % (42.0-75.0); Mean Corpuscular HGB CONC 30.8 g/dL (32.0-36.0); Mean Corpuscular Hemoglobin 27.7 pg (27.0-31.0); Mean Platelet Volume 7.4 fL (7.4-10.4); Platelet Count 257 thou/uL (130-400); RBC Distribution Width 15.5 % (11.5-14.5); Red Blood Cell (RBC) Count 3.98 mill/uL (4.70-6.10); White Blood Cell (WBC) Count 4.9 thou/uL (4.8-10.8)
[2021-11-17 15:57] LABS: ALT (SGPT) 15 U/L (8-55); AST (SGOT) 24 U/L (5-34); Albumin 3.6 g/dL (3.4-4.8); Alkaline Phosphatase 93 U/L (40-110); Anion Gap 11 mmol/L (10-20); BUN (Urea Nitrogen) 19 mg/dL (8.4-25.7); Bilirubin, Total 0.5 mg/dL (0.2-1.2); Calc. Creatinine Clearance 0 mL/min (70-130); Calcium 8.5 mg/dL (7.8-10.44); Carbon Dioxide 26 mmol/L (23-31); Chloride 104 mmol/L (98-107); Estimated GFR 46; Globulin 3.6 g/dL (2.4-3.5); Glucose 82 mg/dL (83-110); Lipase 23 U/L (8-78); Magnesium 2.1 mg/dL (1.6-2.6); Potassium 3.8 mmol/L (3.5-5.1); Protein, Total 7.2 g/dL (5.8-8.1); Sodium 137 mmol/L (136-145)
[2021-11-17 16:16] LABS: CKMB 2.5 ng/mL (0-6.6)
[2021-11-17] MEDS ORDERED: Aspirin Chewable 81 MG TAB ONE (18:29)
[2021-11-17 19:20] LABS: CKMB 2.4 ng/mL (0-6.6)
== END 2021-11-17 19:16 | disposition home or self-care (01) ==
LOC: ERS 15:01
DX: I49.9 Cardiac arrhythmia, unspecified (principal); R77.8 Other specified abnormalities of plasma proteins; R78.4 Finding of other drugs of addictive potential in blood; R79.89 Other specified abnormal findings of blood chemistry; I48.91 Unspecified atrial fibrillation; I10 Essential (primary) hypertension; Z79.01 Long term (current) use of anticoagulants; Z79.899 Other long term (current) drug therapy
CPT/HCPCS: 36415; 71045; 80053; 82553; 83690; 83735; 84484; 85025; 85379; 93005

== ENCOUNTER 2022-01-31 11:23 | Emergency (ER) | payer MEDICARE, BC ==
[2022-01-31 12:41] LABS: #Eosinphils 0.2 thou/uL (0.0-0.7); #Lymphocytes 1.8 thou/uL (1.20-3.40); #Monocytes 0.7 thou/uL (0.11-0.59); %Basophils 0.3 % (0.0-1.0); %Eosinophils 4.1 % (0.0-10.0); %Lymphocytes 32.3 % (21.0-51.0); %Monocytes 11.4 % (0.0-10.0); %Neutrophils 51.9 % (42.0-75.0); Hemoglobin 13.6 g/dL (14.0-18.0); Mean Corpuscular HGB CONC 31.7 g/dL (32.0-36.0); Mean Corpuscular Hemoglobin 29.3 pg (27.0-31.0); Mean Corpuscular Volume 92.3 fl (78.0-98.0); Mean Platelet Volume 8.2 fL (7.4-10.4); Platelet Count 230 10x3/uL (130-400); RBC Distribution Width 16.2 % (11.5-14.5); Red Blood Cell (RBC) Count 4.63 mill/uL (4.70-6.10); White Blood Cell (WBC) Count 5.7 10x3/uL (4.8-10.8)
[2022-01-31 13:04] LABS: ALT (SGPT) 15 U/L (8-55); AST (SGOT) 21 U/L (5-34); Albumin 3.8 g/dL (3.4-4.8); Alkaline Phosphatase 123 U/L (40-110); Anion Gap 10 mmol/L (10-20); BUN (Urea Nitrogen) 11 mg/dL (8.4-25.7); Bilirubin, Total 0.5 mg/dL (0.2-1.2); Calc. Creatinine Clearance 0 mL/min (70-130); Carbon Dioxide 28 mmol/L (23-31); Chloride 105 mmol/L (98-107); Estimated GFR 63; Globulin 3.9 g/dL (2.4-3.5); Glucose 98 mg/dL (83-110); Potassium 4.1 mmol/L (3.5-5.1); Protein, Total 7.7 g/dL (5.8-8.1); Sodium 139 mmol/L (136-145)
[2022-01-31 13:22] LABS: CKMB 2.1 ng/mL (0-6.6)
== END 2022-01-31 14:52 | disposition home or self-care (01) ==
LOC: ERS 11:23
DX: I11.0 Hypertensive heart disease with heart failure (principal); I50.9 Heart failure, unspecified; R06.00 Dyspnea, unspecified
CPT/HCPCS: 36415; 71045; 80053; 82553; 83880; 84484; 85025; 93005

== ENCOUNTER 2022-05-10 14:48 | Inpatient (IN) | payer MEDICARE, BC ==
[2022-05-10 15:22] LABS: #Eosinphils 0.3 thou/uL (0.0-0.7); #Lymphocytes 2.1 thou/uL (1.20-3.40); #Monocytes 0.7 thou/uL (0.11-0.59); #Neutrophils 2.9 thou/uL (1.40-6.50); %Basophils 0.5 % (0.0-1.0); %Eosinophils 5.5 % (0.0-10.0); %Lymphocytes 34.8 % (21.0-51.0); %Neutrophils 47.2 % (42.0-75.0); Hemoglobin 13.2 g/dL (14.0-18.0); Mean Corpuscular Hemoglobin 31.1 pg (27.0-31.0); Mean Corpuscular Volume 94.1 fl (78.0-98.0); Mean Platelet Volume 7.4 fL (7.4-10.4); Platelet Count 240 10x3/uL (130-400); RBC Distribution Width 14.6 % (11.5-14.5); Red Blood Cell (RBC) Count 4.25 mill/uL (4.70-6.10); White Blood Cell (WBC) Count 6.1 10x3/uL (4.8-10.8)
[2022-05-10 15:49] LABS: ALT (SGPT) 16 U/L (8-55); AST (SGOT) 27 U/L (5-34); Albumin 3.8 g/dL (3.4-4.8); Alkaline Phosphatase 101 U/L (40-110); Anion Gap 14 mmol/L (10-20); BUN (Urea Nitrogen) 19 mg/dL (8.4-25.7); Bilirubin, Total 0.3 mg/dL (0.2-1.2); Calc. Creatinine Clearance 0 mL/min (70-130); Carbon Dioxide 24 mmol/L (23-31); Chloride 102 mmol/L (98-107); Estimated GFR 55; Globulin 3.8 g/dL (2.4-3.5); Glucose 112 mg/dL (83-110); Lipase 21 U/L (8-78); Potassium 3.8 mmol/L (3.5-5.1); Protein, Total 7.6 g/dL (5.8-8.1); Sodium 136 mmol/L (136-145)
[2022-05-10 16:04] LABS: CKMB 2.6 ng/mL (0-6.6)
[2022-05-10] MEDS ORDERED: Moisturizing Cream (Eucerin) 113 GM JAR TOP PRN (21:39)
[2022-05-10] MEDS ORDERED: Acetaminophen 650 MG Suppository PR PRN (21:39)
[2022-05-10] MEDS ORDERED: Ondansetron ODT 4 MG TAB PO PRN (21:39)
[2022-05-10] MEDS ORDERED: Senokot S 8.6-50 MG TAB PO PRN (21:39)
[2022-05-10] MEDS ORDERED: Bisacodyl 5 MG TAB PO PRN (21:39)
[2022-05-10] MEDS ORDERED: Acetaminophen 325 MG TAB PO PRN (21:39)
[2022-05-10] MEDS ORDERED: Artificial Tear Sol 15 ML BOT EA EYE PRN (21:39)
[2022-05-10 21:45] VITALS: BMI 23.3
[2022-05-10] MEDS ORDERED: Aspirin 325 MG TAB PO SCH (21:45)
[2022-05-10] MEDS ORDERED: Electrolyte Replacement Protocol FS SCH (21:45)
[2022-05-10] MEDS ORDERED: Potassium Chloride 20 MEQ TAB PO SCH (22:00)
[2022-05-10 23:46] LABS: Troponin I 0.091 ng/mL (< 0.028)
[2022-05-11 02:39] LABS: #Basophils 0.1 thou/uL (0.0-0.2); #Eosinphils 0.3 thou/uL (0.0-0.7); #Monocytes 0.6 thou/uL (0.11-0.59); #Neutrophils 1.6 thou/uL (1.40-6.50); %Basophils 1.2 % (0.0-1.0); %Lymphocytes 43.3 % (21.0-51.0); %Monocytes 13.7 % (0.0-10.0); %Neutrophils 34.8 % (42.0-75.0); Hemoglobin 11.6 g/dL (14.0-18.0); Mean Corpuscular HGB CONC 32.8 g/dL (32.0-36.0); Mean Corpuscular Hemoglobin 30.9 pg (27.0-31.0); Mean Corpuscular Volume 94.4 fl (78.0-98.0); Mean Platelet Volume 7.5 fL (7.4-10.4); Platelet Count 212 10x3/uL (130-400); RBC Distribution Width 14.7 % (11.5-14.5); Red Blood Cell (RBC) Count 3.76 mill/uL (4.70-6.10); White Blood Cell (WBC) Count 4.7 10x3/uL (4.8-10.8)
[2022-05-11 02:56] LABS: Troponin I 0.087 ng/mL (< 0.028)
[2022-05-11 03:00] LABS: ALT (SGPT) 13 U/L (8-55); AST (SGOT) 23 U/L (5-34); Albumin 3.3 g/dL (3.4-4.8); Alkaline Phosphatase 81 U/L (40-110); Anion Gap 12 mmol/L (10-20); BUN (Urea Nitrogen) 18 mg/dL (8.4-25.7); Bilirubin, Total 0.3 mg/dL (0.2-1.2); Calc. Creatinine Clearance 55 mL/min (70-130); Calcium 8.8 mg/dL (7.8-10.44); Carbon Dioxide 25 mmol/L (23-31); Cardiac Risk 2.5 (Less than 4.5); Chloride 104 mmol/L (98-107); Cholesterol 114 mg/dl (< 200 Desired); Estimated GFR 71; Globulin 3.5 g/dL (2.4-3.5); Glucose 94 mg/dL (83-110); HDL Cholesterol 45 mg/dL (>60 Neg Risk); LDL Cholesterol, Calculated 57 mg/dL; Potassium 3.7 mmol/L (3.5-5.1); Protein, Total 6.8 g/dL (5.8-8.1); Sodium 137 mmol/L (136-145); Triglycerides 61 mg/dL (Less than 150)
[2022-05-11] MEDS ORDERED: Sotalol HCl 80 MG TAB PO SCH ×2 (09:00→11:45)
[2022-05-11] MEDS: Aspirin Chewable 81 MG TAB PO SCH (10:36)
[2022-05-11] MEDS: Famotidine 20 MG TAB PO SCH ×2 (10:36→21:00)
[2022-05-11] MEDS: Carvedilol 6.25 MG TAB PO SCH (10:36)
[2022-05-11] MEDS ORDERED: Magnesium 2 GM/50 ML(in water) 2 GM in Premix Bag 1 BAG IVPB SCH (11:30)
[2022-05-11] MEDS: Sotalol HCl 80 MG TAB PO SCH (20:59)
[2022-05-12 08:53] LABS: Anion Gap 7 mmol/L (10-20); BUN (Urea Nitrogen) 17 mg/dL (8.4-25.7); Calc. Creatinine Clearance 56 mL/min (70-130); Calcium 8.7 mg/dL (7.8-10.44); Carbon Dioxide 29 mmol/L (23-31); Chloride 105 mmol/L (98-107); Estimated GFR 72; Glucose 112 mg/dL (83-110); Potassium 4.2 mmol/L (3.5-5.1); Sodium 137 mmol/L (136-145)
[2022-05-12] MEDS: Sotalol HCl 80 MG TAB PO SCH ×2 (09:28→21:40)
[2022-05-12] MEDS: Famotidine 20 MG TAB PO SCH ×2 (09:30→21:41)
[2022-05-12] MEDS: Carvedilol 6.25 MG TAB PO SCH (09:30)
[2022-05-12] MEDS: Rivaroxaban 10 MG TAB PO SCH (09:30)
[2022-05-12] MEDS: Aspirin Chewable 81 MG TAB PO SCH (09:31)
[2022-05-13 04:46] LABS: Anion Gap 10 mmol/L (10-20); BUN (Urea Nitrogen) 19 mg/dL (8.4-25.7); Calc. Creatinine Clearance 55 mL/min (70-130); Calcium 8.8 mg/dL (7.8-10.44); Carbon Dioxide 26 mmol/L (23-31); Chloride 105 mmol/L (98-107); Estimated GFR 70; Glucose 78 mg/dL (83-110); Potassium 4.3 mmol/L (3.5-5.1); Sodium 137 mmol/L (136-145)
[2022-05-13] MEDS: Sotalol HCl 80 MG TAB PO SCH (10:31)
[2022-05-13] MEDS: Carvedilol 6.25 MG TAB PO SCH (10:31)
[2022-05-13] MEDS: Famotidine 20 MG TAB PO SCH (10:32)
[2022-05-13] MEDS: Aspirin Chewable 81 MG TAB PO SCH (10:33)
[2022-05-13] MEDS: Rivaroxaban 10 MG TAB PO SCH (10:35)
[2022-05-13 13:09] VITALS: BP 133/70; TEMP 97.8
[2022-05-13] MEDS ORDERED: FLU VACC QS2022-23(65YR UP)/PF 240 MCG/0.7 ML SYRINGE IM ONE (22:30)
== END 2022-05-13 15:15 | disposition home or self-care (01) | DRG 309 ==
LOC: ERS 14:48 → 2NO 20:07 → OBSVTOIN 05-11 16:50
PROVIDERS: ADMIT Family Medicine; ATTEND Family Medicine
PROC: 4B02XTZ Measurement of Cardiac Defibrillator, External Approach (ICD-10-PCS; principal; 2022-05-11)
DX: I48.0 Paroxysmal atrial fibrillation (principal); I50.22 Chronic systolic (congestive) heart failure; Z20.822 Contact with and (suspected) exposure to COVID-19; I11.0 Hypertensive heart disease with heart failure; I25.5 Ischemic cardiomyopathy; I25.10 Atherosclerotic heart disease of native coronary artery without angina pectoris; I47.20 Ventricular tachycardia, unspecified; Z95.810 Presence of automatic (implantable) cardiac defibrillator; Z95.1 Presence of aortocoronary bypass graft; Z98.890 Other specified postprocedural states; Z79.899 Other long term (current) drug therapy; Z79.01 Long term (current) use of anticoagulants
CPT/HCPCS: 36415; 71045; 80048; 80053; 80061; 82553; 83690; 83735; 84484; 85025; 93005; 93010; 93306; 94760; G0378; J1650; J3475; U0003; U0005

== ENCOUNTER 2022-05-27 11:56 | Emergency (ER) | payer MEDICARE, BC ==
[2022-05-27 12:52] LABS: #Eosinphils 0.2 thou/uL (0.0-0.7); #Lymphocytes 1.5 thou/uL (1.20-3.40); #Monocytes 0.5 thou/uL (0.11-0.59); #Neutrophils 2.4 thou/uL (1.40-6.50); %Basophils 0.5 % (0.0-1.0); %Eosinophils 5.2 % (0.0-10.0); %Lymphocytes 31.8 % (21.0-51.0); %Monocytes 10.5 % (0.0-10.0); Hemoglobin 11.8 g/dL (14.0-18.0); Mean Corpuscular HGB CONC 31.6 g/dL (32.0-36.0); Mean Corpuscular Hemoglobin 29.9 pg (27.0-31.0); Mean Corpuscular Volume 94.5 fl (78.0-98.0); Mean Platelet Volume 7.5 fL (7.4-10.4); Platelet Count 219 10x3/uL (130-400); RBC Distribution Width 13.9 % (11.5-14.5); Red Blood Cell (RBC) Count 3.94 mill/uL (4.70-6.10); White Blood Cell (WBC) Count 4.6 10x3/uL (4.8-10.8)
[2022-05-27 13:05] LABS: Bilirubin Negative (Negative); Blood, Urine Negative (Negative); Clarity Clear (Clear); Glucose, Urine (Dipstick) Normal (Negative); Ketone, Urine Negative (Negative); Leukocyte Negative Leu/uL (Negative); Nitrite Negative (Negative); Protein, Urine (Dipstick) Negative (Neg-Trace); Specific Gravity, Urine 1.005 (1.002-1.036); Urobilinogen Normal mg/dL (Less than 2)
[2022-05-27 13:07] LABS: ALT (SGPT) 14 U/L (8-55); AST (SGOT) 22 U/L (5-34); Albumin 3.5 g/dL (3.4-4.8); Alkaline Phosphatase 102 U/L (40-110); Anion Gap 9 mmol/L (10-20); BUN (Urea Nitrogen) 9 mg/dL (8.4-25.7); Bilirubin, Total 0.5 mg/dL (0.2-1.2); Calc. Creatinine Clearance 0 mL/min (70-130); Carbon Dioxide 28 mmol/L (23-31); Chloride 106 mmol/L (98-107); Estimated GFR 86; Globulin 3.9 g/dL (2.4-3.5); Glucose 92 mg/dL (83-110); Potassium 3.7 mmol/L (3.5-5.1); Protein, Total 7.4 g/dL (5.8-8.1); Sodium 139 mmol/L (136-145)
[2022-05-27] MEDS ORDERED: Dexamethasone 10 MG/ML VIAL ONE (14:29)
== END 2022-05-27 14:45 | disposition home or self-care (01) ==
LOC: ERS 11:56
DX: R10.9 Unspecified abdominal pain (principal); I48.91 Unspecified atrial fibrillation; I10 Essential (primary) hypertension; Z79.01 Long term (current) use of anticoagulants; Z79.82 Long term (current) use of aspirin; Z79.899 Other long term (current) drug therapy
CPT/HCPCS: 36415; 74176; 80053; 81003; 85025; 96374; J1100

== ENCOUNTER 2022-06-08 07:01 | Day surgery (SDC) | payer MEDICARE, BC ==
[2022-06-07 09:58] VITALS: BMI 23.0
[2022-06-08] MEDS ORDERED: Ketamine 50 MG/ML (10ML VIAL) ONE (08:21)
[2022-06-08] MEDS ORDERED: fentaNYL 50 mcg/mL 1 mL Vial ONE ×2 (08:38→11:04)
[2022-06-08] MEDS ORDERED: Ondansetron PF 4 MG/2 ML Vial ONE (08:47)
[2022-06-08] MEDS ORDERED: Vecuronium 10 MG VIAL ONE (08:47)
[2022-06-08] MEDS ORDERED: PROPOFOL 200 MG/20 ML VIAL ONE (08:47)
[2022-06-08] MEDS ORDERED: Dexamethasone 20 MG/5 ML VIAL ONE (08:47)
[2022-06-08] MEDS ORDERED: Rocuronium Bromide 10 MG/ML (10ML VIAL) ONE (08:47)
[2022-06-08] MEDS ORDERED: Heparin 10,000 UNITS/ 10 ML VIAL ONE ×2 (09:12→10:00)
[2022-06-08] MEDS ORDERED: Heparin 25,000 units/D5W 500 ML ONE (09:12)
[2022-06-08] MEDS ORDERED: Isoproterenol 0.2 MG/1 ML AMP ONE (09:12)
[2022-06-08] MEDS ORDERED: SUGAMMADEX SODIUM 200 MG/2 ML VIAL ONE (11:04)
[2022-06-08] MEDS ORDERED: Protamine Sulfate 50 MG/5 ML VIAL ONE (11:18)
[2022-06-08] MEDS ORDERED: Ondansetron HCl/PF 4 MG/2 ML Vial IVP PRN (11:52)
== END 2022-06-08 16:05 | disposition home or self-care (01) ==
LOC: SDC 07:01
PROVIDERS: ATTEND Internal Medicine Cardiovascular Disease
PROC: 02583ZZ Destruction of Conduction Mechanism, Percutaneous Approach (ICD-10-PCS; principal; 2022-06-08)
PROC: 02K83ZZ Map Conduction Mechanism, Percutaneous Approach (ICD-10-PCS; 2022-06-08)
PROC: 4A023FZ Measurement of Cardiac Rhythm, Percutaneous Approach (ICD-10-PCS; 2022-06-08)
PROC: 4A0234Z Measurement of Cardiac Electrical Activity, Percutaneous Approach (ICD-10-PCS; 2022-06-08)
DX: I48.0 Paroxysmal atrial fibrillation (principal); I48.92 Unspecified atrial flutter; I11.0 Hypertensive heart disease with heart failure; I50.22 Chronic systolic (congestive) heart failure; I25.5 Ischemic cardiomyopathy; E78.5 Hyperlipidemia, unspecified; M19.90 Unspecified osteoarthritis, unspecified site; I47.20 Ventricular tachycardia, unspecified; I25.10 Atherosclerotic heart disease of native coronary artery without angina pectoris; Z87.891 Personal history of nicotine dependence; Z79.01 Long term (current) use of anticoagulants; Z79.82 Long term (current) use of aspirin; Z79.899 Other long term (current) drug therapy; Z95.1 Presence of aortocoronary bypass graft; Z95.5 Presence of coronary angioplasty implant and graft; Z95.810 Presence of automatic (implantable) cardiac defibrillator
CPT/HCPCS: 93005; 93623; 93656; 93657; J3010; 93010; C1732; C1759; C1760; C1894; J1644; J2720

== ENCOUNTER 2022-10-28 14:09 | Emergency (ER) | payer MEDICARE, BC ==
[2022-10-28 15:28] LABS: #Eosinphils 0.2 thou/uL (0.0-0.7); #Monocytes 0.6 thou/uL (0.11-0.59); #Neutrophils 1.9 thou/uL (1.40-6.50); %Basophils 0.9 % (0.0-1.0); %Eosinophils 4.7 % (0.0-10.0); %Lymphocytes 36.6 % (21.0-51.0); %Neutrophils 44.3 % (42.0-75.0); Hematocrit 35.3 % (42.0-52.0); Hemoglobin 11.2 g/dL (14.0-18.0); Mean Corpuscular HGB CONC 31.7 g/dL (32.0-36.0); Mean Corpuscular Hemoglobin 28.1 pg (27.0-31.0); Mean Corpuscular Volume 88.5 fl (78.0-98.0); Mean Platelet Volume 10.1 fL (7.4-10.4); Platelet Count 222 10x3/uL (130-400); RBC Distribution Width 15.7 % (11.5-14.5); Red Blood Cell (RBC) Count 3.99 mill/uL (4.70-6.10); White Blood Cell (WBC) Count 4.2 10x3/uL (4.8-10.8)
[2022-10-28 15:51] LABS: Troponin I 0.069 ng/mL (< 0.028)
[2022-10-28 15:58] LABS: ALT (SGPT) 19 U/L (8-55); AST (SGOT) 29 U/L (5-34); Albumin 3.5 g/dL (3.4-4.8); Alkaline Phosphatase 120 U/L (40-110); Anion Gap 11 mmol/L (10-20); BUN (Urea Nitrogen) 20 mg/dL (8.4-25.7); Bilirubin, Total 0.4 mg/dL (0.2-1.2); Calc. Creatinine Clearance 0 mL/min (70-130); Calcium 8.8 mg/dL (7.8-10.44); Carbon Dioxide 25 mmol/L (23-31); Chloride 105 mmol/L (98-107); Estimated GFR 60; Globulin 3.5 g/dL (2.4-3.5); Glucose 127 mg/dL (83-110); Potassium 3.7 mmol/L (3.5-5.1); Sodium 137 mmol/L (136-145)
[2022-10-28 17:33] LABS: Troponin I 0.074 ng/mL (< 0.028)
== END 2022-10-28 21:04 | disposition home or self-care (01) ==
LOC: ERS 14:09
DX: I11.0 Hypertensive heart disease with heart failure (principal); I50.9 Heart failure, unspecified; I48.91 Unspecified atrial fibrillation; R74.01 Elevation of levels of liver transaminase levels; Z79.899 Other long term (current) drug therapy; Z79.82 Long term (current) use of aspirin; Z79.01 Long term (current) use of anticoagulants
CPT/HCPCS: 36415; 71045; 80053; 83880; 84484; 85025; 93005

== ENCOUNTER 2024-02-17 13:36 | Observation (INO) | payer MEDICARE, BC ==
[2024-02-17 13:57] LABS: #Basophils 0.04 10x3/uL (0.0-0.2); %Basophils 0.7 % (0.0-1.0); %Eosinophils 1.7 % (0.0-10.0); %Lymphocytes 27.1 % (21.0-51.0); %Neutrophils 60.2 % (42.0-75.0); Hematocrit 38.6 % (42.0-52.0); Hemoglobin 12.9 g/dL (14.0-18.0); Mean Corpuscular HGB CONC 33.4 g/dL (32.0-36.0); Mean Corpuscular Hemoglobin 33.1 pg (27.0-31.0); Mean Platelet Volume 8.8 fL (7.4-10.4); Platelet Count 299 10x3/uL (130-400); RBC Distribution Width 12.4 % (11.5-14.5)
[2024-02-17 14:11] LABS: Bacteria/HPF None Seen HPF (None Seen); Bilirubin Negative (Negative); Blood, Urine Negative (Negative); CAUTI Indications for Culture Dysuria,urgency,freq; Clarity Clear (Clear); Glucose, Urine (Dipstick) >=1000 mg/dL (Negative); Ketone, Urine Negative (Negative); Leukocyte Negative Leu/uL (Negative); Nitrite Negative (Negative); Protein, Urine (Dipstick) Negative (Neg-Trace); RBC/HPF 0-3 HPF (0-3); Specific Gravity, Urine 1.009 (1.002-1.036); Squamous Epithelial None Seen HPF (0-3); Urobilinogen Normal mg/dL (Less than 2); WBC/HPF None Seen HPF (0-3); pH, Urine 5.5 (5.0-9.0)
[2024-02-17 14:13] LABS: ALT (SGPT) 14 U/L (8-55); AST (SGOT) 20 U/L (5-34); Albumin 3.7 g/dL (3.4-4.8); Alkaline Phosphatase 81 U/L (40-110); Anion Gap 16 mmol/L (10-20); BUN (Urea Nitrogen) 22 mg/dL (8.4-25.7); Bilirubin, Total 0.5 mg/dL (0.2-1.2); Calc. Creatinine Clearance 0 mL/min (70-130); Carbon Dioxide 22 mmol/L (23-31); Chloride 99 mmol/L (98-107); Estimated GFR 54; Globulin 3.8 g/dL (2.4-3.5); Glucose 118 mg/dL (83-110); Protein, Total 7.5 g/dL (5.8-8.1); Sodium 133 mmol/L (136-145)
[2024-02-17 14:13] LABS: Urine Culture Reflex No No
[2024-02-17 14:17] LABS: Troponin I 0.076 ng/mL (< 0.028)
[2024-02-17] MEDS ORDERED: Calcium Carbonate 500 MG ChewTAB PO PRN (17:27)
[2024-02-17] MEDS ORDERED: Acetaminophen 325 MG TAB PO PRN (17:27)
[2024-02-17] MEDS ORDERED: Ondansetron PF 4 MG/2 ML Vial IVP PRN (17:27)
[2024-02-17] MEDS ORDERED: Ondansetron ODT 4 MG TAB PO PRN (17:27)
[2024-02-17] MEDS ORDERED: Acetaminophen 650 MG Suppository PR PRN (17:27)
[2024-02-17 17:38] LABS: Troponin I 0.055 ng/mL (< 0.028)
[2024-02-17 18:05] LABS: Magnesium 2.3 mg/dL (1.6-2.6)
[2024-02-17 18:12] VITALS: BMI 20.2
[2024-02-17] MEDS: Sodium Chloride 0.9% 500 ML IV SCH (18:13)
[2024-02-17 20:11] LABS: Troponin I 0.061 ng/mL (< 0.028)
[2024-02-17] MEDS: Pantoprazole DR 40 MG TAB PO SCH (20:19)
[2024-02-18 04:33] LABS: #Basophils 0.04 10x3/uL (0.0-0.2); %Basophils 0.8 % (0.0-1.0); %Lymphocytes 30.9 % (21.0-51.0); %Monocytes 14.3 % (0.0-10.0); %Neutrophils 51.4 % (42.0-75.0); Hematocrit 33.2 % (42.0-52.0); Hemoglobin 11.3 g/dL (14.0-18.0); Mean Corpuscular Hemoglobin 33.5 pg (27.0-31.0); Mean Corpuscular Volume 98.5 fL (78.0-98.0); Mean Platelet Volume 8.9 fL (7.4-10.4); Platelet Count 260 10x3/uL (130-400); RBC Distribution Width 12.3 % (11.5-14.5); Red Blood Cell (RBC) Count 3.37 mill/uL (4.70-6.10)
[2024-02-18 04:52] LABS: ALT (SGPT) 11 U/L (8-55); AST (SGOT) 17 U/L (5-34); Albumin 3.2 g/dL (3.4-4.8); Alkaline Phosphatase 70 U/L (40-110); Anion Gap 10 mmol/L (10-20); BUN (Urea Nitrogen) 20 mg/dL (8.4-25.7); Bilirubin, Total 0.3 mg/dL (0.2-1.2); Calc. Creatinine Clearance 45 mL/min (70-130); Calcium 8.3 mg/dL (7.8-10.44); Carbon Dioxide 23 mmol/L (23-31); Chloride 105 mmol/L (98-107); Estimated GFR 67; Globulin 3.2 g/dL (2.4-3.5); Glucose 100 mg/dL (83-110); Potassium 3.9 mmol/L (3.5-5.1); Protein, Total 6.4 g/dL (5.8-8.1); Sodium 134 mmol/L (136-145)
[2024-02-18] MEDS: Aspirin Chewable 81 MG TAB PO SCH (08:21)
[2024-02-18] MEDS: Enoxaparin 40 MG (0.4 mL) SYRINGE SC SCH (08:21)
[2024-02-18] MEDS: Sodium Chloride 0.9% 500 ML IV SCH (14:35)
[2024-02-19 01:17] LABS: Campy jejuni + coli by PCR Negative (Negative); STEC Shiga Toxin 1+2 Negative (Negative); Salmonella spp. by PCR Negative (Negative); Shigella spp + EIEC by PCR Negative (Negative)
[2024-02-19 07:18] LABS: #Basophils 0.03 10x3/uL (0.0-0.2); %Basophils 0.7 % (0.0-1.0); %Lymphocytes 28.5 % (21.0-51.0); %Monocytes 13.7 % (0.0-10.0); %Neutrophils 53.6 % (42.0-75.0); Hematocrit 35.7 % (42.0-52.0); Mean Corpuscular HGB CONC 33.6 g/dL (32.0-36.0); Mean Corpuscular Hemoglobin 32.9 pg (27.0-31.0); Mean Corpuscular Volume 97.8 fL (78.0-98.0); Platelet Count 254 10x3/uL (130-400); RBC Distribution Width 12.5 % (11.5-14.5); Red Blood Cell (RBC) Count 3.65 mill/uL (4.70-6.10)
[2024-02-19 07:43] LABS: ALT (SGPT) 10 U/L (8-55); AST (SGOT) 15 U/L (5-34); Alkaline Phosphatase 60 U/L (40-110); Anion Gap 11 mmol/L (10-20); BUN (Urea Nitrogen) 15 mg/dL (8.4-25.7); Bilirubin, Total 0.3 mg/dL (0.2-1.2); Calc. Creatinine Clearance 56 mL/min (70-130); Calcium 8.2 mg/dL (7.8-10.44); Carbon Dioxide 23 mmol/L (23-31); Chloride 108 mmol/L (98-107); Estimated GFR 82; Globulin 2.9 g/dL (2.4-3.5); Glucose 95 mg/dL (83-110); Protein, Total 5.9 g/dL (5.8-8.1); Sodium 138 mmol/L (136-145)
[2024-02-19] MEDS ORDERED: Cholecalciferol 1,000 UNITS (25 MCG) TAB PO SCH (09:00)
[2024-02-19] MEDS: Carvedilol 3.125 MG TAB PO SCH (09:29)
[2024-02-19] MEDS: Cholecalciferol 1,000 UNITS (25 MCG) TAB PO SCH (09:30)
[2024-02-19] MEDS: Clopidogrel Bisulfate 75 MG TAB PO SCH (09:31)
[2024-02-19 11:46] VITALS: BP 131/75; TEMP 97.8
== END 2024-02-19 12:57 | disposition home or self-care (01) ==
LOC: ERS 13:36 → OBS 15:59
PROVIDERS: ADMIT Internal Medicine; ATTEND Family Medicine
PROC: B246YZZ Ultrasonography of Right and Left Heart using Other Contrast (ICD-10-PCS; principal; 2024-02-17)
DX: R06.02 Shortness of breath (principal); R53.1 Weakness; E78.5 Hyperlipidemia, unspecified; I25.10 Atherosclerotic heart disease of native coronary artery without angina pectoris; I95.9 Hypotension, unspecified; R79.89 Other specified abnormal findings of blood chemistry; N18.9 Chronic kidney disease, unspecified; I13.0 Hypertensive heart and chronic kidney disease with heart failure and stage 1 through stage 4 chronic kidney disease, or unspecified chronic kidney disease; I50.32 Chronic diastolic (congestive) heart failure; I48.0 Paroxysmal atrial fibrillation; I34.0 Nonrheumatic mitral (valve) insufficiency; I47.20 Ventricular tachycardia, unspecified; Z95.5 Presence of coronary angioplasty implant and graft; Z95.1 Presence of aortocoronary bypass graft; Z98.890 Other specified postprocedural states; Z79.82 Long term (current) use of aspirin; Z79.02 Long term (current) use of antithrombotics/antiplatelets; Z79.899 Other long term (current) drug therapy
CPT/HCPCS: 71045; 80053 ×2; 81001; 83735; 83880; 84484 ×2; 85025 ×2; 87428; 87505; 93005; 93306; 97116; 99285; J1650 ×2; 36415; 82274; 84443; 96372; G0378

== ENCOUNTER 2024-10-02 15:39 | Inpatient (IN) | payer MEDICARE, BC ==
[2024-10-02 16:12] LABS: #Basophils 0.05 10x3/uL (0.0-0.2); #Eosinophils 0.21 10x3/uL (0.0-0.7); #Monocytes 0.86 10x3/uL (0.11-0.59); #Neutrophils 2.86 10x3/uL (1.40-6.50); %Basophils 0.9 % (0.0-1.0); %Eosinophils 3.7 % (0.0-10.0); %Lymphocytes 29.8 % (21.0-51.0); %Monocytes 15.1 % (0.0-10.0); %Neutrophils 50.3 % (42.0-75.0); Hematocrit 36.1 % (42.0-52.0); Hemoglobin 10.8 g/dL (14.0-18.0); Mean Corpuscular Hemoglobin 24.2 pg (27.0-31.0); Mean Corpuscular Volume 80.9 fL (78.0-98.0); Platelet Count 294 10x3/uL (130-400); Red Blood Cell (RBC) Count 4.46 mill/uL (4.70-6.10); White Blood Cell (WBC) Count 5.68 10x3/uL (4.8-10.8)
[2024-10-02 16:25] LABS: ALT (SGPT) 10 U/L (Less than 45); AST (SGOT) 19 U/L (11-34); Albumin 3.5 g/dL (3.1-4.5); Alkaline Phosphatase 114 U/L (40-110); Anion Gap 14 mmol/L (10-20); BUN (Urea Nitrogen) 9 mg/dL (8.4-25.7); Bilirubin, Total 0.5 mg/dL (0.3-1.2); Calc. Creatinine Clearance 0 mL/min (70-130); Calcium 8.4 mg/dL (7.8-10.44); Carbon Dioxide 22 mmol/L (23-31); Chloride 107 mmol/L (98-107); Globulin 3.8 g/dL (2.4-3.5); Glucose 113 mg/dL (83-110); Magnesium 2.3 mg/dL (1.6-2.6); Potassium 4.0 mmol/L (3.5-5.1); Sodium 139 mmol/L (136-145)
[2024-10-02] MEDS ORDERED: Furosemide 40 MG (4 mL) VIAL ONE (17:40)
[2024-10-02] MEDS ORDERED: Acetaminophen 325 MG TAB PO PRN (18:31)
[2024-10-02 19:24] VITALS: BMI 22.1
[2024-10-02] MEDS: Famotidine 20 MG TAB PO SCH (20:11)
[2024-10-02] MEDS ORDERED: Albuterol 200 PUFF (6.7GM INHALER) INH PRN (20:38)
[2024-10-02] MEDS ORDERED: Nitroglycerin 0.4 MG TAB (25 Tab Bottle) SL PRN (20:38)
[2024-10-03 05:30] LABS: #Basophils 0.04 10x3/uL (0.0-0.2); #Eosinophils 0.19 10x3/uL (0.0-0.7); #Monocytes 0.66 10x3/uL (0.11-0.59); #Neutrophils 2.09 10x3/uL (1.40-6.50); %Basophils 0.9 % (0.0-1.0); %Eosinophils 4.4 % (0.0-10.0); %Lymphocytes 30.1 % (21.0-51.0); %Monocytes 15.4 % (0.0-10.0); %Neutrophils 49.0 % (42.0-75.0); Hematocrit 33.5 % (42.0-52.0); Hemoglobin 10.3 g/dL (14.0-18.0); Mean Corpuscular Hemoglobin 24.5 pg (27.0-31.0); Mean Corpuscular Volume 79.6 fL (78.0-98.0); Platelet Count 266 10x3/uL (130-400); Red Blood Cell (RBC) Count 4.21 mill/uL (4.70-6.10); White Blood Cell (WBC) Count 4.28 10x3/uL (4.8-10.8)
[2024-10-03 05:57] LABS: Anion Gap 13 mmol/L (10-20); BUN (Urea Nitrogen) 11 mg/dL (8.4-25.7); Calc. Creatinine Clearance 51 mL/min (70-130); Calcium 8.2 mg/dL (7.8-10.44); Carbon Dioxide 23 mmol/L (23-31); Chloride 107 mmol/L (98-107); Glucose 82 mg/dL (83-110); Magnesium 2.0 mg/dL (1.6-2.6); Potassium 3.7 mmol/L (3.5-5.1); Sodium 139 mmol/L (136-145)
[2024-10-03] MEDS: Furosemide 40 MG (4 mL) VIAL SLOW IVP SCH (06:31)
[2024-10-03] MEDS ORDERED: [UNRECOGNIZED DRUG - REMARK] PO SCH (09:00)
[2024-10-03] MEDS: Ferrous Sulfate 325 MG TAB PO SCH (09:21)
[2024-10-03] MEDS: Spironolactone 25 MG TAB PO SCH (09:21)
[2024-10-03] MEDS: Multivitamin W/ Minerals 1 TAB PO SCH (09:22)
[2024-10-03] MEDS: Cholecalciferol 1,000 UNITS (25 MCG) TAB PO SCH (09:22)
[2024-10-03] MEDS: Lisinopril 2.5 MG TAB PO SCH (09:23)
[2024-10-03] MEDS: Aspirin Chewable 81 MG TAB PO SCH (09:23)
[2024-10-03] MEDS: Dapagliflozin Propanediol 10 MG TAB PO SCH (09:23)
[2024-10-03] MEDS: Carvedilol 3.125 MG TAB PO SCH (17:16)
[2024-10-04 05:21] LABS: Cardiac Risk 3.6 (Less than 4.5); Cholesterol 118.0 mg/dl (< 200 Desired); HDL Cholesterol 33.0 mg/dL (>60 Neg Risk); LDL Cholesterol, Calculated 73.0 mg/dL; Triglycerides 58.0 mg/dL (Less than 150)
[2024-10-04] MEDS: Furosemide 40 MG TAB PO SCH (08:06)
[2024-10-04 12:51] VITALS: BP 114/74; TEMP 97.6
== END 2024-10-04 17:37 | disposition home health service (06) | DRG 291 ==
LOC: ERS 15:39 → OBS 17:40 → SURG A 18:53 → OBS 19:14 → OBSVTOIN 10-03 10:41
PROVIDERS: ADMIT Internal Medicine; ATTEND Family Medicine
DX: I11.0 Hypertensive heart disease with heart failure (principal); I50.43 Acute on chronic combined systolic (congestive) and diastolic (congestive) heart failure; I25.10 Atherosclerotic heart disease of native coronary artery without angina pectoris; I48.0 Paroxysmal atrial fibrillation; E78.5 Hyperlipidemia, unspecified; I34.0 Nonrheumatic mitral (valve) insufficiency; N18.9 Chronic kidney disease, unspecified; J44.9 Chronic obstructive pulmonary disease, unspecified; F10.90 Alcohol use, unspecified, uncomplicated; I25.5 Ischemic cardiomyopathy; Z98.890 Other specified postprocedural states; Z95.810 Presence of automatic (implantable) cardiac defibrillator; Z87.891 Personal history of nicotine dependence; Z95.1 Presence of aortocoronary bypass graft; Z91.148 Patient's other noncompliance with medication regimen for other reason; Z79.899 Other long term (current) drug therapy
CPT/HCPCS: 36415; 71045; 80048; 80053; 80061; 83735; 83880; 84443; 84484; 85025; 93005; 93306; 93798; 96374; 96376; G0378; J1940; J7620

== ENCOUNTER 2024-10-16 20:54 | Inpatient (IN) | payer MEDICARE, BC ==
[~2024-10-16 20:54] MED LIST: Iopamidol-370 76% 500 ML MDV (1 ML CHARGE) ONE
[2024-10-16] MEDS ORDERED: NOREPINEPHRINE 8 MG/250 ML-D5W 250 ML ONE (20:57)
[2024-10-16 21:24] LABS: #Basophils 0.05 10x3/uL (0.0-0.2); #Eosinophils 2.08 10x3/uL (0.0-0.7); #Monocytes 1.38 10x3/uL (0.11-0.59); #Neutrophils 14.19 10x3/uL (1.40-6.50); %Basophils 0.2 % (0.0-1.0); %Eosinophils 10.4 % (0.0-10.0); %Lymphocytes 11.0 % (21.0-51.0); %Monocytes 6.9 % (0.0-10.0); %Neutrophils 70.7 % (42.0-75.0); Hematocrit 38.4 % (42.0-52.0); Hemoglobin 12.0 g/dL (14.0-18.0); Mean Corpuscular Hemoglobin 24.3 pg (27.0-31.0); Mean Corpuscular Volume 77.9 fL (78.0-98.0); Platelet Count 280 10x3/uL (130-400); Red Blood Cell (RBC) Count 4.93 mill/uL (4.70-6.10); White Blood Cell (WBC) Count 20.07 10x3/uL (4.8-10.8)
[2024-10-16 21:35] LABS: Bacteria/HPF None Seen HPF (None Seen); CAUTI Indications for Culture Alt mental st,lethar; Glucose, Urine (Dipstick) 500 mg/dL (Negative); Leukocyte Negative Leu/uL (Negative); Protein, Urine (Dipstick) Negative (Neg-Trace); RBC/HPF 0-3 HPF (0-3); Specific Gravity, Urine 1.009 (1.002-1.036); WBC/HPF 0-3 HPF (0-3)
[2024-10-16] MEDS ORDERED: Cefepime 2 GM VIAL ONE (21:45)
[2024-10-16] MEDS ORDERED: Ondansetron PF 4 MG/2 ML Vial ONE (21:45)
[2024-10-16 21:50] LABS: ALT (SGPT) 74 U/L (Less than 45); AST (SGOT) 80 U/L (11-34); Albumin 2.8 g/dL (3.1-4.5); Alkaline Phosphatase 432 U/L (40-110); Anion Gap 18 mmol/L (10-20); BUN (Urea Nitrogen) 21 mg/dL (8.4-25.7); Bilirubin, Total 1.3 mg/dL (0.3-1.2); Calc. Creatinine Clearance 0 mL/min (70-130); Calcium 8.3 mg/dL (7.8-10.44); Carbon Dioxide 21 mmol/L (23-31); Chloride 100 mmol/L (98-107); Globulin 3.8 g/dL (2.4-3.5); Glucose 89 mg/dL (83-110); Potassium 4.7 mmol/L (3.5-5.1); Sodium 134 mmol/L (136-145)
[2024-10-16 21:55] LABS: Urine Culture Reflex No No
[2024-10-17] MEDS: Vancomycin 1.5 GM / NS 500ML VIAL-2-BAG IVPB SCH (02:00)
[2024-10-17] MEDS: Albumin 25% 25 GM (100 mL) BOT IVPB SCH (02:42)
[2024-10-17] MEDS ORDERED: NOREPINEPHRINE 8 MG/250 ML-D5W 250 ML IVPB SCH (03:30)
[2024-10-17 04:15] LABS: Actual Bicarbonate (HCO3v) 24.1 mEq/L (22-28); Base Excess 0.3 mEq/L (-2.0 to +3.0); Calcium, Ionized (venous) 1.03 mmol/L (1.16-1.32); Chloride (VBG) 98 mmol/L (98-106); Hematocrit-VBG 37 % (42.0-52.0); Hemoglobin (Hb) 12.5 g/dL (12.6-17.4); Potassium (VBG) 4.11 mmol/L (3.70-5.30); Sodium 133 mmol/L (133-146)
[2024-10-17 04:30] LABS: #Basophils 0.04 10x3/uL (0.0-0.2); #Eosinophils 2.14 10x3/uL (0.0-0.7); #Monocytes 0.95 10x3/uL (0.11-0.59); #Neutrophils 15.65 10x3/uL (1.40-6.50); %Basophils 0.2 % (0.0-1.0); %Eosinophils 10.7 % (0.0-10.0); %Lymphocytes 5.3 % (21.0-51.0); %Monocytes 4.8 % (0.0-10.0); %Neutrophils 78.1 % (42.0-75.0); Hematocrit 35.0 % (42.0-52.0); Hemoglobin 10.8 g/dL (14.0-18.0); Mean Corpuscular Hemoglobin 24.4 pg (27.0-31.0); Mean Corpuscular Volume 79.2 fL (78.0-98.0); Platelet Count 292 10x3/uL (130-400); Red Blood Cell (RBC) Count 4.42 mill/uL (4.70-6.10); White Blood Cell (WBC) Count 20.00 10x3/uL (4.8-10.8)
[2024-10-17 04:40] LABS: ALT (SGPT) 58 U/L (Less than 45); AST (SGOT) 53 U/L (11-34); Albumin 3.1 g/dL (3.1-4.5); Alkaline Phosphatase 377 U/L (40-110); Anion Gap 16 mmol/L (10-20); BUN (Urea Nitrogen) 24 mg/dL (8.4-25.7); Bilirubin, Total 1.4 mg/dL (0.3-1.2); Calc. Creatinine Clearance 28 mL/min (70-130); Calcium 8.3 mg/dL (7.8-10.44); Carbon Dioxide 22 mmol/L (23-31); Chloride 98 mmol/L (98-107); Globulin 3.6 g/dL (2.4-3.5); Glucose 109 mg/dL (83-110); Potassium 4.1 mmol/L (3.5-5.1); Sodium 132 mmol/L (136-145)
[2024-10-17] MEDS ORDERED: Vancomycin Dose by Levels Sliding Scale (Wt <71) FS SCH (06:45)
[2024-10-17] MEDS: Aspirin Chewable 81 MG TAB PO SCH (09:29)
[2024-10-17] MEDS: Heparin 5,000 UNITS/ML VIAL SC SCH (09:31)
[2024-10-17] MEDS: Ondansetron PF 4 MG/2 ML Vial IVP PRN (09:56)
[2024-10-17] MEDS: Mupirocin 1 GM TUBE NASAL DECOLONIZATION NASAL SCH (09:57)
[2024-10-17] MEDS: Senokot S 8.6-50 MG TAB PO SCH (10:03)
[2024-10-17] MEDS: Acetaminophen 325 MG TAB PO PRN (14:42)
[2024-10-17 23:38] LABS: Vancomycin, Trough 8.3 ug/mL
[2024-10-18] MEDS: Vancomycin HCl 750 MG in Sodium Chloride 0.9% 250 ML 250 ML IVPB SCH (03:40)
[2024-10-18 04:00] LABS: #Basophils 0.04 10x3/uL (0.0-0.2); #Eosinophils 2.52 10x3/uL (0.0-0.7); #Monocytes 0.82 10x3/uL (0.11-0.59); #Neutrophils 14.52 10x3/uL (1.40-6.50); %Basophils 0.2 % (0.0-1.0); %Eosinophils 13.3 % (0.0-10.0); %Lymphocytes 5.0 % (21.0-51.0); %Monocytes 4.3 % (0.0-10.0); %Neutrophils 76.5 % (42.0-75.0); Hematocrit 37.6 % (42.0-52.0); Hemoglobin 11.7 g/dL (14.0-18.0); Mean Corpuscular Hemoglobin 24.5 pg (27.0-31.0); Mean Corpuscular Volume 78.7 fL (78.0-98.0); Platelet Count 274 10x3/uL (130-400); Red Blood Cell (RBC) Count 4.78 mill/uL (4.70-6.10); White Blood Cell (WBC) Count 18.97 10x3/uL (4.8-10.8)
[2024-10-18 04:19] LABS: ALT (SGPT) 64 U/L (Less than 45); AST (SGOT) 60 U/L (11-34); Albumin 2.7 g/dL (3.1-4.5); Alkaline Phosphatase 546 U/L (40-110); Anion Gap 9 mmol/L (10-20); BUN (Urea Nitrogen) 18 mg/dL (8.4-25.7); Bilirubin, Total 1.6 mg/dL (0.3-1.2); Calc. Creatinine Clearance 36 mL/min (70-130); Calcium 8.3 mg/dL (7.8-10.44); Carbon Dioxide 24 mmol/L (23-31); Globulin 3.6 g/dL (2.4-3.5); Glucose 78 mg/dL (83-110); Potassium 3.9 mmol/L (3.5-5.1); Sodium 132 mmol/L (136-145)
[2024-10-18 04:45] LABS: Chloride 100 mmol/L (98-107)
[2024-10-18 05:12] VITALS: BMI 18.9
[2024-10-18 15:03] VITALS: BMI 18.9
[2024-10-19 05:37] LABS: ALT (SGPT) 61 U/L (Less than 45); AST (SGOT) 53 U/L (11-34); Albumin 2.7 g/dL (3.1-4.5); Alkaline Phosphatase 674 U/L (40-110); Anion Gap 15 mmol/L (10-20); BUN (Urea Nitrogen) 16 mg/dL (8.4-25.7); Bilirubin, Total 1.3 mg/dL (0.3-1.2); Calc. Creatinine Clearance 53 mL/min (70-130); Calcium 8.4 mg/dL (7.8-10.44); Carbon Dioxide 16 mmol/L (23-31); Chloride 102 mmol/L (98-107); Globulin 4.0 g/dL (2.4-3.5); Glucose 69 mg/dL (83-110); Magnesium 2.4 mg/dL (1.6-2.6); Potassium 4.2 mmol/L (3.5-5.1); Sodium 129 mmol/L (136-145)
[2024-10-19 06:07] LABS: Burr Cells SLIGHT = 2-5 cells HPF (0-1); Platelet Adequacy Comment Platelets Normal; Smudge Cells 10.8 %
[2024-10-19 06:13] LABS: Hematocrit 40.8 % (42.0-52.0); Hemoglobin 12.6 g/dL (14.0-18.0); Mean Corpuscular Hemoglobin 24.7 pg (27.0-31.0); Mean Corpuscular Volume 79.8 fL (78.0-98.0); Platelet Count 273 10x3/uL (130-400); Red Blood Cell (RBC) Count 5.11 mill/uL (4.70-6.10); White Blood Cell (WBC) Count 21.02 10x3/uL (4.8-10.8)
[2024-10-19 12:41] VITALS: BP 128/67; TEMP 97.6
== END 2024-10-19 16:50 | disposition home health service (06) | DRG 682 ==
LOC: ERS 20:54 → CCU 10-17 00:50 → 2NO 10-18 08:45
PROVIDERS: ADMIT Internal Medicine; ATTEND Internal Medicine
PROC: 3E03329 Introduction of Other Anti-infective into Peripheral Vein, Percutaneous Approach (ICD-10-PCS; principal; 2024-10-17)
PROC: 3E033XZ Introduction of Vasopressor into Peripheral Vein, Percutaneous Approach (ICD-10-PCS; 2024-10-17)
PROC: 30233J1 Transfusion of Nonautologous Serum Albumin into Peripheral Vein, Percutaneous Approach (ICD-10-PCS; 2024-10-17)
PROC: 02HV33Z Insertion of Infusion Device into Superior Vena Cava, Percutaneous Approach (ICD-10-PCS; 2024-10-17)
PROC: 4A02X4A Measurement of Cardiac Electrical Activity, Guidance, External Approach (ICD-10-PCS; 2024-10-17)
DX: N17.9 Acute kidney failure, unspecified (principal); K72.00 Acute and subacute hepatic failure without coma; R57.1 Hypovolemic shock; E87.1 Hypo-osmolality and hyponatremia; I50.22 Chronic systolic (congestive) heart failure; I11.0 Hypertensive heart disease with heart failure; I48.0 Paroxysmal atrial fibrillation; E78.5 Hyperlipidemia, unspecified; D64.9 Anemia, unspecified; I25.10 Atherosclerotic heart disease of native coronary artery without angina pectoris; I25.5 Ischemic cardiomyopathy; Z95.810 Presence of automatic (implantable) cardiac defibrillator; Z79.82 Long term (current) use of aspirin; Z79.899 Other long term (current) drug therapy; Z79.01 Long term (current) use of anticoagulants; Z95.1 Presence of aortocoronary bypass graft; Z95.5 Presence of coronary angioplasty implant and graft; Z98.890 Other specified postprocedural states; Z87.891 Personal history of nicotine dependence; D72.829 Elevated white blood cell count, unspecified; Z79.02 Long term (current) use of antithrombotics/antiplatelets
CPT/HCPCS: 36415; 36556; 70450; 71045; 71275; 74177; 80053; 80202; 81001; 82533; 82805; 83605; 83735; 83880; 84484; 85025; 87040; 87086; 93005; 94760; 96365; 96375; 99292; J0692; J1644; J2405; J3373; J7030; J7050; P9047; Q9967